=== PATIENT | male | born 1970 | race Hispanic/Latino ===

== ENCOUNTER 2020-12-04 20:13 | Emergency (ER) | payer OTHER ==
[~2020-12-04] VITALS: Ht 182.9 cm; Wt 145.1 kg
[2020-12-04 21:56] LABS: BASOPHILS % (AUTO) 0.6 % (0.0-5.0); EOSINOPHILS % (AUTO) 3.5 % (0.0-8.0); HEMATOCRIT 36.3 % (42-54); LYMPHOCYTES % (AUTO) 15.3 % (21.0-51.0); MEAN CORPUSCULAR HEMOGLOBIN 28.6 pg (27.0-33.0); MEAN CORPUSCULAR HGB CONC 35.3 g/dL (32.0-36.0); MEAN CORPUSCULAR VOLUME 81.2 fL (79-99); MONOCYTES % (AUTO) 9.1 % (3.0-13.0); NEUTROPHILS % (AUTO) 70.3 % (40.0-77.0); PLATELET COUNT (AUTO) 193 K/uL (130-400); RED BLOOD CELL COUNT(AUTO) 4.47 MIL/uL (4.50-6.20); WHITE BLOOD COUNT (AUTO) 8.6 K/uL (4.8-10.8)
[2020-12-04] MEDS ORDERED: 0.9%NACL 1000ML 1,000 ML IV ONE (22:00)
[2020-12-04] MEDS ORDERED: DiphenhydrAMINE HCL 50 MG/ML VIAL IV ONE (22:00)
[2020-12-04] MEDS ORDERED: HALOPERIDOL INJ 5 MG/ML VIAL IM SCH (22:00)
[2020-12-04 22:15] LABS: ALBUMIN 2.7 g/dL (3.5-5.0); BILIRUBIN,TOTAL 0.6 mg/dL (0.2-1.0); CREATININE 1.5 mg/dL (0.5-1.5); POTASSIUM 3.1 mmol/L (3.5-5.1); TOTAL PROTEIN, SERUM 6.6 g/dL (6.0-8.3)
[2020-12-04] MEDS ORDERED: INSULIN HUMULIN R 100 UNIT/ML 3ML SQ ONE (23:00)
[2020-12-05] VITALS: BP 148/87
== END 2020-12-05 00:09 | disposition home or self-care (01) ==
LOC: EDH 20:13
DX: H49.22 Sixth [abducent] nerve palsy, left eye (principal); R11.2 Nausea with vomiting, unspecified; R51.9 Headache, unspecified; E11.9 Type 2 diabetes mellitus without complications; E78.00 Pure hypercholesterolemia, unspecified; I10 Essential (primary) hypertension
CPT/HCPCS: 36415; 70450; 80053; 83690; 84484; 85025; 86677; 93005; 96361; 96372 ×2; 96374; 99285; J1200; J1630; J1815; J7030

== ENCOUNTER 2022-11-19 07:38 | Day surgery (SDC) | payer OTHER ==
[2022-11-17 11:31] LABS: BASOPHILS # (AUTO) 0.04 K/uL (0.00-0.20); BASOPHILS % (AUTO) 0.5 % (0.0-5.0); EOSINOPHILS # (AUTO) 0.21 K/uL (0.00-0.70); EOSINOPHILS % (AUTO) 2.4 % (0.0-8.0); HEMATOCRIT 38.4 % (42-54); IMMATURE GRANULOCYTE ABSOLUTE 0.09 K/uL (0-1); LYMPHOCYTES # (AUTO) 1.1 K/uL (1.0-4.8); MEAN CORPUSCULAR HEMOGLOBIN 29.5 pg (27.0-33.0); MEAN CORPUSCULAR HGB CONC 33.9 g/dL (32.0-36.0); MEAN CORPUSCULAR VOLUME 87.1 fL (79-99); MONOCYTES # (AUTO) 0.6 K/uL (0.1-1.0); MONOCYTES % (AUTO) 6.5 % (3.0-13.0); NEUTROPHILS # (AUTO) 6.6 K/uL (1.8-7.7); NEUTROPHILS % (AUTO) 76.6 % (40.0-77.0); PLATELET COUNT (AUTO) 187 K/uL (130-400); RED BLOOD CELL COUNT(AUTO) 4.41 MIL/uL (4.50-6.20); RED CELL DISTRIBUTION WIDTH 12.6 % (11.0-15.5); WHITE BLOOD COUNT (AUTO) 8.7 K/uL (4.8-10.8)
[2022-11-17 11:40] LABS: CREATININE 1.8 mg/dL (0.5-1.5); POTASSIUM 4.4 mmol/L (3.5-5.1)
[2022-11-17 11:58] VITALS: BP 127/73; PULSE 69; RESP 20
[~2022-11-19] VITALS: Ht 182.9 cm; Wt 134.7 kg
[2022-11-19] VITALS (27 sets, daily range): BP systolic 138–185; BP diastolic 64–96; PULSE 56–69; RESP 12–16
[~2022-11-19 07:38] MED LIST: CARV25TA PO; CETI10TA57 PO; DAPA10TA PO; FURO20TA4 PO; INSU100V37 SQ; NIFE-40 PO; PANT40TA54 PO; ROSU10TA28 PO; SEMA1PEN3 SQ
[2022-11-19] MEDS ORDERED: CEFAZOLIN SODIUM 2 GM VIAL ONE (07:53)
[2022-11-19] MEDS ORDERED: 0.9%NACL 1000ML 1,000 ML IV ONE (07:53)
[2022-11-19] MEDS ORDERED: LIDOCAINE HCL 1% 20 ML VIAL ONE (08:05)
[2022-11-19] MEDS ORDERED: BUPIVACAINE/PF 0.25% 30ML VIAL IJ ONE ×4 (08:05→10:18)
[2022-11-19 08:13] LABS: CREATININE 1.7 mg/dL (0.5-1.5); POTASSIUM 4.2 mmol/L (3.5-5.1)
[2022-11-19] MEDS ORDERED: LIDOCAINE HCL 1% 20 ML VIAL INJ ONE (08:24)
[2022-11-19] MEDS ORDERED: CEFAZOLIN SODIUM 2 GM VIAL IVPB ONE (08:25)
[2022-11-19] MEDS ORDERED: NEOMY SULF/BACITRAC ZN/POLY OINT 30GM TUBE TP ONE (08:32)
[2022-11-19] MEDS ORDERED: ONDANSETRON 4MG INJ ONE (08:53)
[2022-11-19] MEDS ORDERED: MIDAZOLAM HCL 1 MG/ML 2ML VIAL ONE ×2 (08:53→09:37)
[2022-11-19] MEDS ORDERED: SUCCINYLCHOLINE 200MG/10ML SYR ONE (08:53)
[2022-11-19] MEDS ORDERED: LIDOCAINE PF 100MG/5ML (2%) SYRINGE 5ML ONE (08:53)
[2022-11-19] MEDS ORDERED: DEXAMETHASONE SOD PHOSPHATE 10MG/ML 1ML VIAL ONE (08:53)
[2022-11-19] MEDS ORDERED: PROPOFOL 10 MG/ML 20ML VIAL IV ONE (08:54)
[2022-11-19] MEDS ORDERED: NEOSTIGMINE 5MG/5ML SYR IV ONE (08:54)
[2022-11-19] MEDS ORDERED: ROCURONIUM 10MG/1ML SYR 10 MG/ML ML ONE (08:54)
[2022-11-19] MEDS ORDERED: GLYCOPYRROLATE 1 MG/5 ML SYRINGE ONE (08:54)
[2022-11-19] MEDS ORDERED: FENTANYL CITRATE PF 50 MCG/1 ML 2ML VIAL ONE (08:54)
[2022-11-19] MEDS ORDERED: CEFAZOLIN SODIUM 3 GM VIAL IVPB ONE (09:30)
[2022-11-19] MEDS ORDERED: CEFAZOLIN SODIUM 1 GM VIAL ONE (09:39)
[2022-11-19] MEDS ORDERED: BACITRACIN 28.4 GM OINT TP ONE (10:22)
[2022-11-19] MEDS ORDERED: LIDOCAINE HCL/EPINEPHRINE 50 ML VIAL IJ ONE (10:46)
[2022-11-19] MEDS ORDERED: HYDRALAZINE 20MG/ML VIAL ONE (12:29)
== END 2022-11-19 17:05 | disposition home or self-care (01) ==
LOC: DAH 07:38
PROVIDERS: ATTEND Urology
DX: N47.1 Phimosis (principal); N47.8 Other disorders of prepuce; I10 Essential (primary) hypertension; E11.9 Type 2 diabetes mellitus without complications; E66.01 Morbid (severe) obesity due to excess calories; Z86.73 Personal history of transient ischemic attack (TIA), and cerebral infarction without residual deficits; Z79.82 Long term (current) use of aspirin; Z79.899 Other long term (current) drug therapy
CPT/HCPCS: 80048 ×2; 85025; 36415 ×2; 54161; 82948 ×2; 88304; A6260; A4663; J7030 ×2; J0690 ×3; J3010; J0330; J1100; J3490 ×2; J2001; J0360; J2250 ×2; J2704; J2405; A4215; A4223; A4222; A4221; A4510; A4600; J2710